=== PATIENT | male | born 1990 | race African-American/Black ===

== ENCOUNTER 2016-06-08 00:19 | Emergency (ER) | payer MEDICAID ==
[~2016-06-08] VITALS: Ht 177.8 cm; Wt 73.0 kg
[2016-06-08 00:23] VITALS: BP 143/82
[2016-06-08] MEDS ORDERED: BACITRACIN ZINC OINT 500U/GM, 0.9 GM ONE (01:08)
[2016-06-08 01:10] LABS: HIV 1&2 ANTIBODY SCREEN Nonreactive (Nonreactive); HIV-1 p24 ANTIGEN Nonreactive (Nonreactive)
[2016-06-08 01:37] LABS: HEP B SURF. AB 54.6 mIU/mL (0.0-10.0)
[2016-06-08 02:16] LABS: HEPATITIS C VIRUS ANTIBODY Nonreactive (Nonreactive)
== END 2016-06-08 01:18 | disposition home or self-care (01) ==
LOC: ED 00:37
DX: S60.221A Contusion of right hand, initial encounter (principal); J45.909 Unspecified asthma, uncomplicated; W22.8XXA Striking against or struck by other objects, initial encounter; Y93.89 Activity, other specified; Y92.009 Unspecified place in unspecified non-institutional (private) residence as the place of occurrence of the external cause; Y99.9 Unspecified external cause status
CPT/HCPCS: 36415; 86703; 86705; 86706; 86803; 87340; 87899; 99285; G0435